=== PATIENT | female | born 1995 | race Caucasian/White ===

== ENCOUNTER 2020-06-25 08:03 | Emergency (ER) | payer OTHER ==
[2020-06-25 09:29] LABS: BASOPHIL 0.1 % (0-2); EOSINOPHIL 0.8 % (0-5); HCT 43.4 % (37.0-47.0); HGB 14.5 g/dl (12.5-16.0); LYMPHOCYTE 19.8 % (15-48); MCH 31.7 pg (25.0-31.0); MCHC 33.4 g/dL (32.0-36.0); MCV 94.8 fL (78.0-100.0); MONOCYTE 5.5 % (0-12); MPV 9.9 fL (6.0-9.5); NEUTROPHIL 73.5 % (41-80); NRBC 0; PLT 276 K/uL (150-400); RBC 4.58 M/uL (4.20-5.40); RDW 12.5 % (11.5-14.0)
[2020-06-25 09:40] LABS: BILIRUBIN NEGATIVE (NEGATIVE); BLOOD TRACE-INTACT Ery/uL (NEGATIVE); CLARITY CLEAR (CLEAR); COLOR YELLOW (YELLOW); GLUCOSE (U) NORMAL (NORMAL); LEUKOCYTES TRACE Leu/uL (NEGATIVE); NITRITE NEGATIVE (NEGATIVE); PROTEIN NEGATIVE (NEGATIVE); SPECIFIC GRAVITY >=1.030 (1.001-1.030); UROBILINOGEN 0.2 mg/dL (0.2-1.0)
[2020-06-25 09:43] LABS: HCG (URINE) SCREEN NEGATIVE (NEGATIVE)
[2020-06-25 09:51] LABS: BACTERIA 1+; URINARY RBC RARE
[2020-06-25 09:51] LABS: ALBUMIN 3.3 g/dL (3.4-5.0); BILIRUBIN - TOTAL 0.5 mg/dL (0.2-1.0); BUN/CREAT RATIO (CALC) 13.5 RATIO; CREATININE 0.74 mg/dL (0.51-0.95); GLOBULIN (CALCULATION) 4.1 g/dL; POTASSIUM 3.8 mmol/L (3.5-5.1); TOTAL PROTEIN 7.4 g/dL (6.4-8.2)
[2020-06-25] MEDS ORDERED: BENTYL10 MG PO (22:47)
[2020-06-25] MEDS ORDERED: NORCO 5-325 TA1 EACH PO (22:47)
== END 2020-06-25 12:11 | disposition home or self-care (01) ==
LOC: FER 08:03
PROVIDERS: Emergency Medicine
DX: R10.10 Upper abdominal pain, unspecified (principal); R74.01 Elevation of levels of liver transaminase levels
CPT/HCPCS: 36415; 76705; 80053; 81001; 83690; 84703; 85025; J2270; J2405; J7030; Q9967

== ENCOUNTER 2020-06-25 20:03 | Emergency (ER) | payer OTHER ==
[2020-06-25] MEDS ORDERED: BENTYL10 MG PO (22:47)
[2020-06-25] MEDS ORDERED: NORCO 5-325 TA1 EACH PO (22:47)
== END 2020-06-25 23:00 | disposition home or self-care (01) ==
LOC: FER 20:03
DX: R10.11 Right upper quadrant pain (principal); R10.31 Right lower quadrant pain; E03.9 Hypothyroidism, unspecified; Z79.899 Other long term (current) drug therapy
CPT/HCPCS: J2270; J2405; J7030